=== PATIENT | female | born 1995 | race Caucasian/White ===

== ENCOUNTER 2017-04-25 08:32 | Outpatient (CLI) | payer OTHER ==
[2017-04-25] VITALS (9 sets, daily range): BP systolic 103–118; BP diastolic 60–74; PULSE 62–77; TEMP 98.2
[~2017-04-25] VITALS: Ht 165.1 cm; Wt 62.7 kg
[2017-04-25 11:24] LABS: CEREBROSPINAL TUBE #4; CSF APPEARANCE CLEAR; CSF COLOR COLORLESS
[2017-04-25 11:25] LABS: CSF POLYMORPHONUCLEAR 0 % (0-6)
== END 2017-04-25 12:11 | disposition home or self-care (01) ==
LOC: COL.RAD 08:32
PROVIDERS: Psychiatry & Neurology Neurology
DX: R51 Headache (principal)